=== PATIENT | female | born 1930 | race Caucasian/White ===

== ENCOUNTER 2017-02-24 05:24 | Inpatient (IN) | payer MEDICARE ==
[~2017-02-24] VITALS: Ht 165.1 cm; Wt 67.0 kg
[~2017-02-24 05:24] MED LIST: Amoxicillin500 MG PO; Flonase 0.05% N16 GM
[2017-02-24] MEDS ORDERED: LEVSOD150 PO (05:51)
[2017-02-24] MEDS ORDERED: AMLO5 PO (05:51)
[2017-02-24] MEDS ORDERED: LOSARTAN POTAS100 MG PO (05:51)
[2017-02-24] MEDS ORDERED: RANI150 PO (05:51)
[2017-02-24 06:00] LABS: BASOPHILS ABSOLUTE AUTO 0.03 K/mm3 (0.00-0.23); BASOPHILS PERCENT AUTO 0 % (0-2); EOSINOPHILS ABSOLUTE AUTO 0.14 K/mm3 (0.00-0.68); EOSINOPHILS PERCENT AUTO 2 % (0-6); Hematocrit 40.2 % (33.0-51.0); Hemoglobin 13.5 g/dL (11.5-16.0); IMMATURE GRAN ABSOLUTE AUTO 0.01 K/mm3 (0.00-0.10); IMMATURE GRAN PERCENT AUTO 0 % (0-1); LYMPHOCYTES ABSOLUTE AUTO 1.46 K/mm3 (0.84-5.20); LYMPHOCYTES PERCENT AUTO 22 % (21-46); MONOCYTES ABSOLUTE AUTO 0.46 K/mm3 (0.16-1.47); MONOCYTES PERCENT AUTO 7 % (4-13); Mean Corpuscular HGB 31.5 pg (26.0-34.0); Mean Corpuscular HGB Conc 33.6 g/dL (31.5-36.5); Mean Corpuscular Volume 94 fL (80-100); Mean Platelet Volume 10.2 fL (9.1-12.4); NEUTROPHILS PERCENT AUTO 69 % (41-73); Platelet Count 261 K/mm3 (150-400); RDW Coefficient Variation 13.8 % (11.7-14.2); Red Blood Cell Count 4.29 M/mm3 (3.80-5.20)
[2017-02-24 06:20] LABS: Alanine Aminotransfer (ALT/SGP 43 U/L (12-78); Albumin, Blood 3.6 g/dL (3.4-5.0); Alk Phos 167 U/L (50-136); Anion Gap 8 mmol/L (6-16); Aspartate Aminotrans (AST/SGOT 30 U/L (12-37); Bilirubin, Total 0.6 mg/dL (0.1-1.0); Blood Urea Nitrogen 22 mg/dL (8-24); Bun/Creatinine Ratio 17.6 (12.0-20.0); CO2, Blood 25 mmol/L (21-32); Chloride, Blood 105 mmol/L (98-108); Creatinine, Blood 1.25 mg/dL (0.40-1.00); Globulin, Blood 3.5 g/dL (2.2-4.0); Glomerular Filtration Rate 43 (60-); Glucose, Blood 135 mg/dL (70-99); Potassium, Blood 4.3 mmol/L (3.5-5.5); Sodium, Blood 138 mmol/L (136-145); Total Protein, Blood 7.1 g/dL (6.4-8.2); Troponin I <0.015 ng/mL (0.000-0.040)
[2017-02-25] MEDS ORDERED: FURO20 PO (04:52)
[2017-02-25] MEDS ORDERED: ATEN100 PO (04:53)
[2017-02-25] MEDS ORDERED: ATOR20 PO (04:55)
[2017-02-25] MEDS ORDERED: ASPI81CH PO (04:56)
[2017-02-25] MEDS ORDERED: TOCO1000 PO (04:57)
[2017-02-25] MEDS ORDERED: OMEG1CAP30 PO (04:58)
[2017-02-25] MEDS ORDERED: DOCU100 PO (04:59)
[2017-02-25] MEDS ORDERED: METF500 PO (04:59)
[2017-02-25] MEDS ORDERED: CALCA400CH PO (05:01)
[2017-02-25] MEDS ORDERED: UBID100 PO (05:03)
[2017-02-25] MEDS ORDERED: Cranberry300 MG PO (05:04)
[2017-02-25] MEDS ORDERED: EVENING PRIMR1000 MG PO ×2 (05:04→05:05)
[2017-02-25] MEDS ORDERED: Cinnamon500 MG (05:06)
[2017-02-26] MEDS ORDERED: CARV25 PO (11:07)
[2018-01-25] MEDS ORDERED: ACET325 PO (13:35)
[2018-01-25] MEDS ORDERED: Hydralazine HCl10 MG PO (13:36)
== END 2017-02-26 13:25 | disposition home or self-care (01) | DRG 291 ==
LOC: ER 05:24 → PCU 09:26 → MEDS 12:11 → ENPENDDIS 02-26 10:37 → MEDS 02-26 13:25
PROVIDERS: Emergency Medicine
DX: I13.0 Hypertensive heart and chronic kidney disease with heart failure and stage 1 through stage 4 chronic kidney disease, or unspecified chronic kidney disease (principal); I50.31 Acute diastolic (congestive) heart failure; I24.8 Other forms of acute ischemic heart disease; I35.0 Nonrheumatic aortic (valve) stenosis; N18.9 Chronic kidney disease, unspecified; E03.9 Hypothyroidism, unspecified; Z79.899 Other long term (current) drug therapy
CPT/HCPCS: 36415; 71046; 80053; 83880; 84484; 85025; 93005; 93010; 93306; 94640; 96374; 99285; J0360; J1650; J1940; J1956

== ENCOUNTER 2017-03-08 12:08 | Inpatient (IN) | payer MEDICARE ==
[~2017-03-08] VITALS: Ht 167.6 cm; Wt 66.7 kg
[~2017-03-08 12:08] MED LIST changes: +AMLO5 PO; +ASPI81CH PO; +ATEN100 PO; +ATOR20 PO; +CALCA400CH PO; +CARV25 PO; +Cinnamon500 MG; +Cranberry300 MG PO; +DOCU100 PO; +EVENING PRIMR1000 MG PO; +FURO20 PO; +LEVSOD150 PO; +LOSARTAN POTAS100 MG PO; +METF500 PO; +OMEG1CAP30 PO; +RANI150 PO; +TOCO1000 PO; +UBID100 PO
[2017-03-08 12:26] LABS: PCO2 Arterial 45.2 mmHg (35-45); PO2 Arterial 131 mmHg (80-100)
[2017-03-08 12:27] LABS: pH Blood Arterial 7.28 (7.35-7.45)
[2017-03-08 12:39] LABS: BASOPHILS ABSOLUTE AUTO 0.11 K/mm3 (0.00-0.23); BASOPHILS PERCENT AUTO 1 % (0-2); EOSINOPHILS PERCENT AUTO 0 % (0-6); Hematocrit 43.2 % (33.0-51.0); IMMATURE GRAN ABSOLUTE AUTO 0.05 K/mm3 (0.00-0.10); IMMATURE GRAN PERCENT AUTO 0 % (0-1); LYMPHOCYTES ABSOLUTE AUTO 3.09 K/mm3 (0.84-5.20); LYMPHOCYTES PERCENT AUTO 23 % (21-46); MONOCYTES ABSOLUTE AUTO 0.96 K/mm3 (0.16-1.47); MONOCYTES PERCENT AUTO 7 % (4-13); Mean Corpuscular HGB 30.7 pg (26.0-34.0); Mean Corpuscular HGB Conc 32.4 g/dL (31.5-36.5); Mean Corpuscular Volume 95 fL (80-100); Mean Platelet Volume 10.3 fL (9.1-12.4); NEUTROPHILS PERCENT AUTO 68 % (41-73); Platelet Count 343 K/mm3 (150-400); RDW Coefficient Variation 13.4 % (11.7-14.2); RDW Standard Deviation 47.2 fL (35.1-46.3); Red Blood Cell Count 4.56 M/mm3 (3.80-5.20); White Blood Cell Count 13.31 K/mm3 (4.00-11.30)
[2017-03-08 12:51] LABS: International Normalized Ratio 1.09; Prothrombin Time Results 11.4 Sec (9.7-11.5)
[2017-03-08 12:53] LABS: Source, Urine Clean Catch
[2017-03-08 13:05] LABS: Albumin, Blood 3.3 g/dL (3.4-5.0); Albumin/Globulin Ratio 0.8 (0.8-1.8); Bilirubin, Total 0.5 mg/dL (0.1-1.0); Bun/Creatinine Ratio 14.2 (12.0-20.0); Calcium, Blood 8.5 mg/dL (8.5-10.1); Creatinine, Blood 1.55 mg/dL (0.40-1.00); Globulin, Blood 4.2 g/dL (2.2-4.0); Potassium, Blood 4.6 mmol/L (3.5-5.5); Total Protein, Blood 7.5 g/dL (6.4-8.2); Troponin I 0.352 ng/mL (0.000-0.040)
[2017-03-08 13:08] LABS: Appearance, Urine Clear (Clear); Bilirubin, Urine Neg (Neg); Blood, Urine 1+ (Neg); Color, Urine Yellow (P-Yellow); Glucose Qualitative, Urine Neg (Neg); Ketones, Urine Neg (Neg); Leukocyte Esterase, Urine 1+ (Neg); Nitrite, Urine Neg (Neg); Protein, Urine 2+ (Neg); Specific Gravity, Urine 1.015 (1.003-1.022); Urobilinogen, Urine NORM (Normal)
[2017-03-08 14:10] LABS: Bacteria Few /hpf; Red Blood Cells, Urine 0-2 /hpf (0-2); Squamous Epithelial Cells Rare /hpf (Few); White Blood Cells, Urine 0-2 /hpf (0-5)
[2017-03-08 17:16] LABS: Calcium, Blood 8.2 mg/dL (8.5-10.1); Creatinine, Blood 1.69 mg/dL (0.40-1.00); Potassium, Blood 4.4 mmol/L (3.5-5.5)
[2017-03-08 17:18] LABS: Troponin I 1.84 ng/mL (0.000-0.040)
[2017-03-08 23:36] LABS: Creatine Kinase MB 3.8 ng/mL (0.0-3.6); Creatine Kinase MB Index 3.7 (0.0-4.0)
[2017-03-08 23:50] LABS: Troponin I 1.39 ng/mL (0.000-0.040)
[2017-03-09 04:10] LABS: BASOPHILS ABSOLUTE AUTO 0.03 K/mm3 (0.00-0.23); BASOPHILS PERCENT AUTO 0 % (0-2); EOSINOPHILS PERCENT AUTO 0 % (0-6); Hematocrit 32.6 % (33.0-51.0); IMMATURE GRAN ABSOLUTE AUTO 0.04 K/mm3 (0.00-0.10); IMMATURE GRAN PERCENT AUTO 1 % (0-1); LYMPHOCYTES ABSOLUTE AUTO 1.13 K/mm3 (0.84-5.20); LYMPHOCYTES PERCENT AUTO 13 % (21-46); MONOCYTES ABSOLUTE AUTO 0.73 K/mm3 (0.16-1.47); MONOCYTES PERCENT AUTO 8 % (4-13); Mean Corpuscular HGB 30.8 pg (26.0-34.0); Mean Corpuscular HGB Conc 33.7 g/dL (31.5-36.5); Mean Platelet Volume 10.4 fL (9.1-12.4); NEUTROPHILS ABSOLUTE AUTO 6.83 K/mm3 (1.96-9.15); NEUTROPHILS PERCENT AUTO 78 % (41-73); Platelet Count 249 K/mm3 (150-400); RDW Coefficient Variation 13.2 % (11.7-14.2); RDW Standard Deviation 43.8 fL (35.1-46.3); Red Blood Cell Count 3.57 M/mm3 (3.80-5.20); White Blood Cell Count 8.76 K/mm3 (4.00-11.30)
[2017-03-09 04:17] LABS: Mean Corpuscular Volume 91 fL (80-100)
[2017-03-09 04:35] LABS: Albumin, Blood 2.5 g/dL (3.4-5.0); Albumin/Globulin Ratio 0.8 (0.8-1.8); Bilirubin, Total 0.3 mg/dL (0.1-1.0); Bun/Creatinine Ratio 17.9 (12.0-20.0); Calcium, Blood 7.6 mg/dL (8.5-10.1); Creatine Kinase MB 3.4 ng/mL (0.0-3.6); Creatine Kinase MB Index 3.5 (0.0-4.0); Creatinine, Blood 1.56 mg/dL (0.40-1.00); Globulin, Blood 3.2 g/dL (2.2-4.0); Magnesium, Blood 2.1 mg/dL (1.6-2.4); Phosphorus, Blood 4.5 mg/dL (2.5-4.9); Total Protein, Blood 5.7 g/dL (6.4-8.2)
[2017-03-09 04:39] LABS: Troponin I 1.05 ng/mL (0.000-0.040)
[2017-03-12 04:56] LABS: BASOPHILS ABSOLUTE AUTO 0.04 K/mm3 (0.00-0.23); BASOPHILS PERCENT AUTO 1 % (0-2); EOSINOPHILS ABSOLUTE AUTO 0.12 K/mm3 (0.00-0.68); EOSINOPHILS PERCENT AUTO 2 % (0-6); Hematocrit 32.8 % (33.0-51.0); IMMATURE GRAN ABSOLUTE AUTO 0.01 K/mm3 (0.00-0.10); IMMATURE GRAN PERCENT AUTO 0 % (0-1); LYMPHOCYTES PERCENT AUTO 29 % (21-46); MONOCYTES ABSOLUTE AUTO 0.67 K/mm3 (0.16-1.47); MONOCYTES PERCENT AUTO 12 % (4-13); Mean Corpuscular HGB 30.6 pg (26.0-34.0); Mean Corpuscular HGB Conc 33.5 g/dL (31.5-36.5); Mean Corpuscular Volume 91 fL (80-100); Mean Platelet Volume 10.6 fL (9.1-12.4); NEUTROPHILS ABSOLUTE AUTO 3.08 K/mm3 (1.96-9.15); NEUTROPHILS PERCENT AUTO 56 % (41-73); Platelet Count 289 K/mm3 (150-400); RDW Coefficient Variation 12.9 % (11.7-14.2); RDW Standard Deviation 42.9 fL (35.1-46.3); White Blood Cell Count 5.52 K/mm3 (4.00-11.30)
[2017-03-12 05:30] LABS: Albumin, Blood 2.7 g/dL (3.4-5.0); Albumin/Globulin Ratio 0.8 (0.8-1.8); Bilirubin, Total 0.3 mg/dL (0.1-1.0); Bun/Creatinine Ratio 21.6 (12.0-20.0); Calcium, Blood 8.6 mg/dL (8.5-10.1); Creatinine, Blood 1.39 mg/dL (0.40-1.00); Globulin, Blood 3.5 g/dL (2.2-4.0); Potassium, Blood 4.2 mmol/L (3.5-5.5); Total Protein, Blood 6.2 g/dL (6.4-8.2)
[2017-03-13] MEDS ORDERED: ATOR40TA PO (14:05)
[2017-03-13] MEDS ORDERED: CARV25 PO (14:07)
[2017-03-13] MEDS ORDERED: LOSA50 PO (14:08)
[2017-03-13] MEDS ORDERED: CLOP75 PO (14:09)
[2017-03-13] MEDS ORDERED: ISOMON20 PO (14:10)
[2017-03-13] MEDS ORDERED: POTA10T PO (14:12)
[2018-01-25] MEDS ORDERED: ACET325 PO (13:35)
[2018-01-25] MEDS ORDERED: Hydralazine HCl10 MG PO (13:36)
== END 2017-03-13 15:45 | disposition home or self-care (01) | DRG 280 ==
LOC: ER 12:08 → ICUW 13:22 → ER 13:22 → ICUW 14:06 → SURS 03-11 19:26 → ICUW 03-11 19:26 → SURS 03-11 19:26
PROVIDERS: Emergency Medicine; Family Medicine; Hospitalist; Internal Medicine
PROC: 5A09357 Assistance with Respiratory Ventilation, Less than 24 Consecutive Hours, Continuous Positive Airway Pressure (ICD-10-PCS; principal; 2017-03-08)
DX: I13.0 Hypertensive heart and chronic kidney disease with heart failure and stage 1 through stage 4 chronic kidney disease, or unspecified chronic kidney disease (principal); I50.33 Acute on chronic diastolic (congestive) heart failure; I21.A1 Myocardial infarction type 2; J96.01 Acute respiratory failure with hypoxia; J18.9 Pneumonia, unspecified organism; E11.22 Type 2 diabetes mellitus with diabetic chronic kidney disease; N18.3 Chronic kidney disease, stage 3 (moderate); I35.0 Nonrheumatic aortic (valve) stenosis; E87.1 Hypo-osmolality and hyponatremia; E03.9 Hypothyroidism, unspecified; E78.5 Hyperlipidemia, unspecified; Z79.84 Long term (current) use of oral hypoglycemic drugs; Z79.899 Other long term (current) drug therapy; Z79.82 Long term (current) use of aspirin
CPT/HCPCS: 36415; 36600; 51702; 71045; 80048; 80053; 81001; 82550; 82553; 82803; 83605; 83735; 83880; 84100; 84484; 85025; 85610; 85730; 87086; 93005; 93010; 94640; 94660; 94760; 96365; 96366; 96375; 97161; 97165; 97530; 99285; G8978; G8979; G8980; G8987; G8988; G8989; J0456; J0696; J1644; J1650; J1940; J7030; J7050; J7060

== ENCOUNTER 2018-02-08 02:23 | Inpatient (IN) | payer MEDICARE ==
[~2018-02-08] VITALS: Ht 167.6 cm; Wt 58.5 kg
[~2018-02-08 02:23] MED LIST changes: +ACET325 PO; +ATOR40TA PO; +CLOP75 PO; +HYDRA25 PO; +ISODIN20 PO; +LOSA50 PO; +POTA10T PO; -RANI150 PO; +Zantac150 MG PO
[2018-02-08 02:41] LABS: BASOPHILS ABSOLUTE AUTO 0.11 K/mm3 (0.00-0.23); BASOPHILS PERCENT AUTO 1 % (0-2); EOSINOPHILS ABSOLUTE AUTO 0.22 K/mm3 (0.00-0.68); EOSINOPHILS PERCENT AUTO 2 % (0-6); Hematocrit 40.7 % (33.0-51.0); IMMATURE GRAN ABSOLUTE AUTO 0.03 K/mm3 (0.00-0.10); IMMATURE GRAN PERCENT AUTO 0 % (0-1); LYMPHOCYTES ABSOLUTE AUTO 4.28 K/mm3 (0.84-5.20); LYMPHOCYTES PERCENT AUTO 38 % (21-46); MONOCYTES ABSOLUTE AUTO 1.06 K/mm3 (0.16-1.47); MONOCYTES PERCENT AUTO 10 % (4-13); Mean Corpuscular HGB 32.4 pg (26.0-34.0); Mean Corpuscular HGB Conc 31.9 g/dL (31.5-36.5); Mean Corpuscular Volume 102 fL (80-100); Mean Platelet Volume 9.5 fL (9.1-12.4); NEUTROPHILS ABSOLUTE AUTO 5.48 K/mm3 (1.96-9.15); NEUTROPHILS PERCENT AUTO 49 % (41-73); Platelet Count 333 K/mm3 (150-400); RDW Coefficient Variation 14.4 % (11.7-14.2); RDW Standard Deviation 53.9 fL (35.1-46.3); Red Blood Cell Count 4.01 M/mm3 (3.80-5.20); White Blood Cell Count 11.18 K/mm3 (4.00-11.30)
[2018-02-08 02:50] LABS: PCO2 Arterial 49.3 mmHg (35-45); PO2 Arterial 248 mmHg (80-100); pH Blood Arterial 7.27 (7.35-7.45)
[2018-02-08 02:56] LABS: Albumin, Blood 3.5 g/dL (3.4-5.0); Albumin/Globulin Ratio 0.9 (0.8-1.8); Bilirubin, Total 0.6 mg/dL (0.1-1.0); Bun/Creatinine Ratio 9.8 (12.0-20.0); Calcium, Blood 8.5 mg/dL (8.5-10.1); Creatinine, Blood 1.33 mg/dL (0.40-1.00); Globulin, Blood 3.7 g/dL (2.2-4.0); Potassium, Blood 4.7 mmol/L (3.5-5.5); Total Protein, Blood 7.2 g/dL (6.4-8.2); Troponin I 0.015 ng/mL (0.000-0.040)
[2018-02-08 03:21] LABS: Source, Urine Catheter
[2018-02-08 03:24] LABS: Appearance, Urine Clear (Clear); Bilirubin, Urine Neg (Neg); Blood, Urine Neg (Neg); Color, Urine Yellow (P-Yellow); Glucose Qualitative, Urine Neg (Neg); Ketones, Urine Neg (Neg); Leukocyte Esterase, Urine 1+ (Neg); Nitrite, Urine Neg (Neg); Protein, Urine 2+ (Neg); Urobilinogen, Urine NORM (Normal)
[2018-02-08 03:37] LABS: Red Blood Cells, Urine 0-2 /hpf (0-2)
[2018-02-08 03:38] LABS: Bacteria Few /hpf; Squamous Epithelial Cells Few /hpf (Few)
[2018-02-08 04:37] LABS: Influenza A Negative (NEGATIVE); Influenza B Negative (NEGATIVE)
[2018-02-08 07:25] LABS: PCO2 Arterial 38.2 mmHg (35-45); PO2 Arterial 78.5 mmHg (80-100); pH Blood Arterial 7.42 (7.35-7.45)
[2018-02-09 03:32] LABS: BASOPHILS ABSOLUTE AUTO 0.01 K/mm3 (0.00-0.23); BASOPHILS PERCENT AUTO 0 % (0-2); EOSINOPHILS PERCENT AUTO 0 % (0-6); Hematocrit 33.3 % (33.0-51.0); Hemoglobin 10.9 g/dL (11.5-16.0); IMMATURE GRAN ABSOLUTE AUTO 0.04 K/mm3 (0.00-0.10); IMMATURE GRAN PERCENT AUTO 0 % (0-1); LYMPHOCYTES ABSOLUTE AUTO 0.61 K/mm3 (0.84-5.20); LYMPHOCYTES PERCENT AUTO 5 % (21-46); MONOCYTES ABSOLUTE AUTO 0.65 K/mm3 (0.16-1.47); MONOCYTES PERCENT AUTO 6 % (4-13); Mean Corpuscular HGB 31.5 pg (26.0-34.0); Mean Corpuscular HGB Conc 32.7 g/dL (31.5-36.5); Mean Corpuscular Volume 96 fL (80-100); Mean Platelet Volume 10.2 fL (9.1-12.4); NEUTROPHILS ABSOLUTE AUTO 10.06 K/mm3 (1.96-9.15); NEUTROPHILS PERCENT AUTO 88 % (41-73); Platelet Count 238 K/mm3 (150-400); RDW Coefficient Variation 14.3 % (11.7-14.2); RDW Standard Deviation 50.1 fL (35.1-46.3); Red Blood Cell Count 3.46 M/mm3 (3.80-5.20); White Blood Cell Count 11.37 K/mm3 (4.00-11.30)
[2018-02-09 03:52] LABS: Bun/Creatinine Ratio 14.2 (12.0-20.0); Calcium, Blood 8.4 mg/dL (8.5-10.1); Creatinine, Blood 1.62 mg/dL (0.40-1.00); Potassium, Blood 4.1 mmol/L (3.5-5.5)
[2018-02-10] MEDS ORDERED: Micro-K10 MEQ PO (04:44)
[2018-02-10] MEDS ORDERED: BUME2 PO (04:47)
[2018-02-10 05:23] LABS: Vancomycin, Trough 4.7 ug/mL (5.0-10.0)
[2018-02-10 12:50] LABS: Albumin, Blood 2.7 g/dL (3.4-5.0); Anion Gap 8 mmol/L (6-16); Blood Urea Nitrogen 36 mg/dL (8-24); Bun/Creatinine Ratio 21.4 (12.0-20.0); CO2, Blood 26 mmol/L (21-32); Calcium, Blood 8.2 mg/dL (8.5-10.1); Chloride, Blood 106 mmol/L (98-108); Creatinine, Blood 1.68 mg/dL (0.40-1.00); Glomerular Filtration Rate 31 (60-); Glucose, Blood 231 mg/dL (70-99); Phosphorus, Blood 3.1 mg/dL (2.5-4.9); Sodium, Blood 140 mmol/L (136-145)
[2018-02-11 03:39] LABS: Albumin, Blood 2.6 g/dL (3.4-5.0); Anion Gap 10 mmol/L (6-16); Blood Urea Nitrogen 41 mg/dL (8-24); Bun/Creatinine Ratio 24.7 (12.0-20.0); CO2, Blood 25 mmol/L (21-32); Calcium, Blood 8.1 mg/dL (8.5-10.1); Chloride, Blood 106 mmol/L (98-108); Creatinine, Blood 1.66 mg/dL (0.40-1.00); Glomerular Filtration Rate 31 (60-); Glucose, Blood 123 mg/dL (70-99); Potassium, Blood 3.8 mmol/L (3.5-5.5); Sodium, Blood 141 mmol/L (136-145)
[2018-02-11] MEDS ORDERED: LISI5 PO (13:01)
== END 2018-02-11 14:23 | disposition home or self-care (01) | DRG 291 ==
LOC: ER 02:23 → ICUE 04:10 → ICUW 04:10 → PCU 04:40 → ICUE 04:44 → PCU 02-10 17:18
PROVIDERS: Emergency Medicine; Family Medicine; Internal Medicine Endocrinology, Diabetes & Metabolism; Student in an Organized Health Care Education/Training Program
DX: I13.0 Hypertensive heart and chronic kidney disease with heart failure and stage 1 through stage 4 chronic kidney disease, or unspecified chronic kidney disease (principal); J96.01 Acute respiratory failure with hypoxia; I50.33 Acute on chronic diastolic (congestive) heart failure; J96.02 Acute respiratory failure with hypercapnia; J44.1 Chronic obstructive pulmonary disease with (acute) exacerbation; I16.1 Hypertensive emergency; N18.4 Chronic kidney disease, stage 4 (severe); I35.0 Nonrheumatic aortic (valve) stenosis; E03.9 Hypothyroidism, unspecified; E11.22 Type 2 diabetes mellitus with diabetic chronic kidney disease
CPT/HCPCS: 31500; 31720; 36415; 36600; 51702; 71045; 80048; 80053; 80069; 80202; 81001; 82803; 82947; 83605; 83880; 84145; 84484; 85025; 87070; 87086; 87205; 87804; 90686; 93005; 93010; 94002; 94003; 94640; 94644; 96365; 96375; 99291-25; 99292; C9113; G0008; J0330; J0456; J0696; J1650; J1815; J1940; J1956; J2060; J2405; J2543; J2930; J3010; J3370; J7030; J7050

== ENCOUNTER → 2018-02-19 | Outpatient (CLI) | payer MEDICARE, SELFPAY ==
[~2018-02-19] MED LIST changes: +BUME2 PO; +LISI5 PO; +Micro-K10 MEQ PO
== END | disposition home or self-care (01) ==
LOC: LAB EV 07:05
PROVIDERS: Internal Medicine
DX: J81.0 Acute pulmonary edema (principal); I10 Essential (primary) hypertension
CPT/HCPCS: 81050; 82570; 84585

== ENCOUNTER → 2018-02-24 | Outpatient (CLI) | payer MEDICARE, SELFPAY ==
[2018-02-27 18:07] LABS: DOPAMINE, URINE 18 ug/L (Undefined)
== END ==
LOC: LAB 07:05 → LAB SHORT 07:05 → EDSTATUS 02-19 15:50 → LAB FUT 02-19 15:50
PROVIDERS: Internal Medicine
DX: I10 Essential (primary) hypertension (principal); J81.0 Acute pulmonary edema
CPT/HCPCS: 81050; 82384

== ENCOUNTER → 2018-05-19 | Outpatient (CLI) | payer MEDICARE, OTHER ==
[2018-05-19 13:19] LABS: BASOPHILS ABSOLUTE AUTO 0.05 K/mm3 (0.00-0.23); BASOPHILS PERCENT AUTO 1 % (0-2); EOSINOPHILS ABSOLUTE AUTO 0.12 K/mm3 (0.00-0.68); EOSINOPHILS PERCENT AUTO 2 % (0-6); Hematocrit 30.3 % (33.0-51.0); Hemoglobin 10.3 g/dL (11.5-16.0); IMMATURE GRAN ABSOLUTE AUTO 0.01 K/mm3 (0.00-0.10); IMMATURE GRAN PERCENT AUTO 0 % (0-1); LYMPHOCYTES ABSOLUTE AUTO 1.11 K/mm3 (0.84-5.20); LYMPHOCYTES PERCENT AUTO 18 % (21-46); MONOCYTES ABSOLUTE AUTO 0.69 K/mm3 (0.16-1.47); MONOCYTES PERCENT AUTO 11 % (4-13); Mean Corpuscular HGB 31.5 pg (26.0-34.0); Mean Corpuscular Volume 93 fL (80-100); Mean Platelet Volume 9.7 fL (9.1-12.4); NEUTROPHILS ABSOLUTE AUTO 4.28 K/mm3 (1.96-9.15); NEUTROPHILS PERCENT AUTO 68 % (41-73); Platelet Count 284 K/mm3 (150-400); RDW Coefficient Variation 14.8 % (11.7-14.2); RDW Standard Deviation 49.9 fL (35.1-46.3); Red Blood Cell Count 3.27 M/mm3 (3.80-5.20); White Blood Cell Count 6.26 K/mm3 (4.00-11.30)
[2018-05-19 13:45] LABS: Albumin, Blood 3.7 g/dL (3.4-5.0); Albumin/Globulin Ratio 1.1 (0.8-1.8); Bilirubin, Total 0.4 mg/dL (0.1-1.0); Bun/Creatinine Ratio 18.4 (12.0-20.0); Creatinine, Blood 2.55 mg/dL (0.40-1.00); Globulin, Blood 3.4 g/dL (2.2-4.0); Potassium, Blood 4.4 mmol/L (3.5-5.5); Total Protein, Blood 7.1 g/dL (6.4-8.2); Troponin I 0.03 ng/mL (0.000-0.040)
== END | disposition home or self-care (01) ==
LOC: LAB EV 13:11 → LAB SHORT 13:11
PROVIDERS: Physician Assistant
DX: R06.02 Shortness of breath (principal)
CPT/HCPCS: 80053; 83880; 84484; 85025

== ENCOUNTER → 2018-05-20 | Outpatient (CLI) | payer MEDICARE, OTHER | END | disposition home or self-care (01) | LOC: LAB EV 12:55 → LAB SHORT 12:55 | DX: R06.02 Shortness of breath (principal) | CPT/HCPCS: 83880 ==

== ENCOUNTER 2018-06-25 06:10 | Inpatient (IN) | payer MEDICARE, OTHER ==
[~2018-06-25] VITALS: Ht 165.1 cm; Wt 63.5 kg
[2018-06-25 06:29] LABS: BASOPHILS ABSOLUTE AUTO 0.04 K/mm3 (0.00-0.23); BASOPHILS PERCENT AUTO 0 % (0-2); EOSINOPHILS ABSOLUTE AUTO 0.02 K/mm3 (0.00-0.68); EOSINOPHILS PERCENT AUTO 0 % (0-6); Hematocrit 37.5 % (33.0-51.0); IMMATURE GRAN ABSOLUTE AUTO 0.04 K/mm3 (0.00-0.10); IMMATURE GRAN PERCENT AUTO 0 % (0-1); LYMPHOCYTES ABSOLUTE AUTO 0.72 K/mm3 (0.84-5.20); LYMPHOCYTES PERCENT AUTO 5 % (21-46); MONOCYTES ABSOLUTE AUTO 0.84 K/mm3 (0.16-1.47); MONOCYTES PERCENT AUTO 6 % (4-13); Mean Corpuscular HGB 31.1 pg (26.0-34.0); Mean Corpuscular Volume 97 fL (80-100); Mean Platelet Volume 9.7 fL (9.1-12.4); NEUTROPHILS ABSOLUTE AUTO 13.19 K/mm3 (1.96-9.15); NEUTROPHILS PERCENT AUTO 89 % (41-73); Platelet Count 298 K/mm3 (150-400); RDW Coefficient Variation 14.6 % (11.7-14.2); RDW Standard Deviation 50.5 fL (35.1-46.3); Red Blood Cell Count 3.86 M/mm3 (3.80-5.20); White Blood Cell Count 14.85 K/mm3 (4.00-11.30)
[2018-06-25 06:49] LABS: Albumin, Blood 3.6 g/dL (3.4-5.0); Bilirubin, Total 0.7 mg/dL (0.1-1.0); Bun/Creatinine Ratio 19.5 (12.0-20.0); Creatinine, Blood 2.21 mg/dL (0.40-1.00); Globulin, Blood 3.6 g/dL (2.2-4.0); Potassium, Blood 5.8 mmol/L (3.5-5.5); Total Protein, Blood 7.2 g/dL (6.4-8.2); Troponin I 0.033 ng/mL (0.000-0.040)
--- NOTE | 2018-06-25 18:17 | NUR ---
SHIFT SUMMARY PT ALERT AND ORIENTED. VS STABLE AT THIS TIME. 02 SATS HAVE REMAINED ABOVE 90%. PT TITRATED FROM BIPAP TO NC AT 2L. PT DENIES CP. PT DENIES ANY PAIN. PT ABLE TO TRANSFER TO BSC WITH SBA AND SATS REMAINED ABOVE 90%. WILL CONTINUE TO MONITOR AND REPORT TO ONCOMING RN. CALL LIGHT IN REACH.
--- NOTE | 2018-06-25 23:20 | NUR ---
PM NOTE. ASSUMED CARE OF PT APROX 1900, PT IS A&0x4, PLEASENT AND COOPERATIVE WITH CARE, PT WAS AMDITTED FOR FLASH PULMONARY EDEMA, THIS HAS IMPROVED GREATLY. PT WAS ON 2L NC AT 98% WHEN THIS RN ENTERD THE ROOM, O2 WAS TURNED OFF AND PT'S SATS REMAINED STABLE AT >92%. PT'S RESP EFFORT WAS RELAXED, RR AT 16. TELE INTACT, NSR IN THE 60'S-70'S PER CAM MILLING MACHINE OPERATOR, PT'S BP 146/77, NO EDEMA NOTED ON ASSESSMENT. PT'S L/S CLEAR UPPER LOBES FINE CRACKELS NOTED IN THE BASES. RR IS 16 EVEN AND UNLABORED, PT BECOMES SLIGHTLY SOB W/ACTIVITY BUT THIS HAS GREATLY IMPROVED PER PT. BT PRESENT AND HYPOACTIVE, ABD IS SOFT AND NONTENDER TO PALP. CALL LIGHT IN REACH,BED IS LOCKED AND LOW WILL CONTINUE TO MONITOR. WILL CONTINUE TO MONITOR.
[2018-06-26 06:19] LABS: BASOPHILS ABSOLUTE AUTO 0.04 K/mm3 (0.00-0.23); BASOPHILS PERCENT AUTO 1 % (0-2); EOSINOPHILS ABSOLUTE AUTO 0.05 K/mm3 (0.00-0.68); EOSINOPHILS PERCENT AUTO 1 % (0-6); Hemoglobin 10.8 g/dL (11.5-16.0); IMMATURE GRAN ABSOLUTE AUTO 0.02 K/mm3 (0.00-0.10); IMMATURE GRAN PERCENT AUTO 0 % (0-1); LYMPHOCYTES ABSOLUTE AUTO 0.69 K/mm3 (0.84-5.20); LYMPHOCYTES PERCENT AUTO 9 % (21-46); MONOCYTES ABSOLUTE AUTO 0.79 K/mm3 (0.16-1.47); MONOCYTES PERCENT AUTO 11 % (4-13); Mean Corpuscular HGB 31.4 pg (26.0-34.0); Mean Corpuscular HGB Conc 33.8 g/dL (31.5-36.5); Mean Platelet Volume 9.2 fL (9.1-12.4); NEUTROPHILS ABSOLUTE AUTO 5.94 K/mm3 (1.96-9.15); NEUTROPHILS PERCENT AUTO 79 % (41-73); Platelet Count 276 K/mm3 (150-400); RDW Coefficient Variation 14.6 % (11.7-14.2); RDW Standard Deviation 47.9 fL (35.1-46.3); Red Blood Cell Count 3.44 M/mm3 (3.80-5.20); White Blood Cell Count 7.53 K/mm3 (4.00-11.30)
[2018-06-26 06:24] LABS: Mean Corpuscular Volume 93 fL (80-100)
[2018-06-26 06:39] LABS: Albumin, Blood 3.1 g/dL (3.4-5.0); Bilirubin, Total 0.6 mg/dL (0.1-1.0); Bun/Creatinine Ratio 19.8 (12.0-20.0); Calcium, Blood 8.7 mg/dL (8.5-10.1); Creatine Kinase MB 1.5 ng/mL (0.0-3.6); Creatine Kinase MB Index 3.2 (0.0-4.0); Creatinine, Blood 2.47 mg/dL (0.40-1.00); Potassium, Blood 4.1 mmol/L (3.5-5.5); Total Protein, Blood 6.1 g/dL (6.4-8.2); Troponin I 0.499 ng/mL (0.000-0.040)
--- NOTE | 2018-06-26 06:46 | NUR ---
SHIFT SUMMARY. NO ACUTE CHANGES NOTED. PT HAS BEEN ON RA ALL SHIFT W/O2 SATS >90% PT WAS TREATED FOR HTN ONCE DURING THIS SHIFT WITH GOOD RESULTS. PT DENIES ANY CHEST PAIN/PRESSURE, N/V OR SOB. PT HAS BEEN IND TO THE BSC. NO CARDIAC EVENTS NOTED ON TELE. PT HAS BEEN ABLE TO TURN HERSELF IN BED INDEPENDENTLY. CALL LIGHT IN REACH, BED IS LOCKED AND LOW WILL CONTINUE TO MONITOT UNTIL REPORT IS GIVEN TO ONCOMING RN.
--- NOTE | 2018-06-26 09:00 | NUR ---
ASSUMED CARE OF PT AT APPROXIMATELY 0745. PT ALERT AND ORIENTED. 02 SATS >90% ON RA. PT REPORTS FEELING SHORT OF BREATH. CRACKLES HEARD IN BILATERAL BASES OF LUNGS. BP ELEVATED. PT MEDICATED AND PLACED ON BIPAP. BP RECHECKED AN HOUR AFTER MEDICATION ADMINISTRATION AND HAS IMPROVED. WILL CONTINUE TO MONITOR.
--- NOTE | 2018-06-26 19:17 | NUR ---
SHIFT SUMMARY PT ALERT AND ORIENTED. VS STABLE. PT HAS BEEN ON RA SINCE 1200 WITH SATS >90%. PT DENIES FEELING SOB THIS EVENING. DR. COSTA IN THIS AFTERNOON WITH NEW ORDERS. BLADDER SCAN DONE AND 315ML IN BLADDER. DR. COSTA NOTIFIED WITH NEW ORDERS TO REPEAT BLADDER SCAN AT 2100. PT NOTIFIED OF PLAN OF CARE. PT DENIES PAIN. REPORT GIVEN TO RESIN MAKER RN.
[2018-06-27 04:15] LABS: BASOPHILS ABSOLUTE AUTO 0.02 K/mm3 (0.00-0.23); BASOPHILS PERCENT AUTO 0 % (0-2); EOSINOPHILS PERCENT AUTO 2 % (0-6); Hematocrit 31.2 % (33.0-51.0); Hemoglobin 10.3 g/dL (11.5-16.0); IMMATURE GRAN ABSOLUTE AUTO 0.02 K/mm3 (0.00-0.10); IMMATURE GRAN PERCENT AUTO 0 % (0-1); LYMPHOCYTES ABSOLUTE AUTO 0.96 K/mm3 (0.84-5.20); LYMPHOCYTES PERCENT AUTO 15 % (21-46); MONOCYTES ABSOLUTE AUTO 0.84 K/mm3 (0.16-1.47); MONOCYTES PERCENT AUTO 13 % (4-13); Mean Corpuscular HGB 30.8 pg (26.0-34.0); Mean Corpuscular Volume 93 fL (80-100); Mean Platelet Volume 9.4 fL (9.1-12.4); NEUTROPHILS ABSOLUTE AUTO 4.48 K/mm3 (1.96-9.15); NEUTROPHILS PERCENT AUTO 70 % (41-73); Platelet Count 278 K/mm3 (150-400); RDW Coefficient Variation 14.8 % (11.7-14.2); RDW Standard Deviation 48.9 fL (35.1-46.3); Red Blood Cell Count 3.34 M/mm3 (3.80-5.20); White Blood Cell Count 6.42 K/mm3 (4.00-11.30)
[2018-06-27 04:35] LABS: Anion Gap 8 mmol/L (6-16); Blood Urea Nitrogen 56 mg/dL (8-24); Bun/Creatinine Ratio 21.7 (12.0-20.0); CO2, Blood 25 mmol/L (21-32); Calcium, Blood 8.6 mg/dL (8.5-10.1); Chloride, Blood 104 mmol/L (98-108); Creatinine, Blood 2.58 mg/dL (0.40-1.00); Glomerular Filtration Rate 19 (60-); Glucose, Blood 108 mg/dL (70-99); Magnesium, Blood 2.1 mg/dL (1.6-2.4); Phosphorus, Blood 3.4 mg/dL (2.5-4.9); Potassium, Blood 4.1 mmol/L (3.5-5.5); Sodium, Blood 137 mmol/L (136-145); Troponin I 0.237 ng/mL (0.000-0.040)
--- NOTE | 2018-06-27 05:25 | NUR ---
SHIFT SUMMARY PT A&O X4, CALM AND COOPERATIVE. LUNG SOUNDS CLEAR T/O. SPO2 > 92% ON RA. MONITOR SHOWS NSR. SYS BP > 160 TX'D W/ HYDRALAZINE PER EMAR X1 THIS SHIFT, OTHERWISE VSS. PM BLADDER SCAN SHOWING APPROX 360 MLS URINE. PT REQUIRING PROMPTING TO GET UP TO BEDSIDE COMMODE TO VOID. WILL CONTINUE TO MONITOR AND PROVIDE CARE UNTIL REPORT OFF TO DAY SHIFT RN.
--- NOTE | 2018-06-27 10:40 | NUR ---
AM NOTE. ASSUMED CARE OF PT APROX 0700. PT IS A&O AND IND IN THE ROOM. PT WAS ADMITTED FOR FLASH PULMONARY EDEMA. PT HAS BEEN HYPERTENSIVE, AND MEDICATED PER EMAR. PT IS CURRENTLY ON 2L NC AT 96%, PT REQUESTS TO LEAVE THE O2 ON DUE TO PERSONAL COMFORT AT THIS TIME. TELE INTACT, NSR IN THE 80'S, PT'S BP 175/87. NO EDEMA NOTED ON ASSESSMENT. PT'S L/S CLEAR IN THE UPPER LOBES AND DIM IN THE BASES. BT PRESENT AND HYPERACTIVE, ABD IS SLIGHTLY DISTENDED BUT NONTENDER TO PALP. PT HAS URINARY RETENTION AT THIS TIME, PT IS ENCOURAGED Q2 HOURS TO GET UP AND USE THE BSC TO ATTEMPT TO VOID. PT HAD RENAL/BLADDER US TODAY RESULTS PENDING.
--- NOTE | 2018-06-27 15:58 | NUR ---
ASSUMED CARE FOR PT AT APPROX 1430. PT IS A/O X 4 AND INDEPENDENT TO THE BR. SHE IS CALM AND COOPERATIVE WITH CARE. PT IN ROOM WITH VISITOR AT THIS TIME WILL CONTINUE TO MONITOR.
--- NOTE | 2018-06-28 04:30 | NUR ---
SHIFT SUMMARY PT IS ALERT AND ORIENTED. PATIENT GETS UP INDEPENDENTLY IN ROOM. NO COMPLAINTS OF SOB OR CP. PATIENT SLEPT WELL THROUGHOUT THE NIGHT. VITALS STABLE. NO NEW CHANGES NOTED.
[2018-06-28 05:22] LABS: BASOPHILS ABSOLUTE AUTO 0.04 K/mm3 (0.00-0.23); BASOPHILS PERCENT AUTO 1 % (0-2); EOSINOPHILS ABSOLUTE AUTO 0.17 K/mm3 (0.00-0.68); EOSINOPHILS PERCENT AUTO 3 % (0-6); Hematocrit 33.5 % (33.0-51.0); Hemoglobin 10.9 g/dL (11.5-16.0); IMMATURE GRAN ABSOLUTE AUTO 0.02 K/mm3 (0.00-0.10); IMMATURE GRAN PERCENT AUTO 0 % (0-1); LYMPHOCYTES ABSOLUTE AUTO 0.73 K/mm3 (0.84-5.20); LYMPHOCYTES PERCENT AUTO 11 % (21-46); MONOCYTES ABSOLUTE AUTO 0.83 K/mm3 (0.16-1.47); MONOCYTES PERCENT AUTO 13 % (4-13); Mean Corpuscular HGB 30.5 pg (26.0-34.0); Mean Corpuscular HGB Conc 32.5 g/dL (31.5-36.5); Mean Corpuscular Volume 94 fL (80-100); Mean Platelet Volume 9.4 fL (9.1-12.4); NEUTROPHILS ABSOLUTE AUTO 4.68 K/mm3 (1.96-9.15); NEUTROPHILS PERCENT AUTO 72 % (41-73); Platelet Count 278 K/mm3 (150-400); RDW Coefficient Variation 14.8 % (11.7-14.2); Red Blood Cell Count 3.57 M/mm3 (3.80-5.20); White Blood Cell Count 6.47 K/mm3 (4.00-11.30)
[2018-06-28 05:52] LABS: Albumin, Blood 3.1 g/dL (3.4-5.0); Anion Gap 9 mmol/L (6-16); Blood Urea Nitrogen 57 mg/dL (8-24); Bun/Creatinine Ratio 21.3 (12.0-20.0); CO2, Blood 22 mmol/L (21-32); Calcium, Blood 8.6 mg/dL (8.5-10.1); Chloride, Blood 105 mmol/L (98-108); Creatinine, Blood 2.67 mg/dL (0.40-1.00); Glomerular Filtration Rate 18 (60-); Glucose, Blood 114 mg/dL (70-99); Magnesium, Blood 2.1 mg/dL (1.6-2.4); Phosphorus, Blood 3.6 mg/dL (2.5-4.9); Potassium, Blood 4.7 mmol/L (3.5-5.5); Sodium, Blood 136 mmol/L (136-145)
--- NOTE | 2018-06-28 16:55 | NUR ---
SHIFT SUMMARY PT A+O, INDEPENDANT IN THE ROOM, NO COMPLAINTS OF SHORTNESS OF BREATH THIS SHIFT. DIET WAS CHANGED FROM CARDIAC TO RENAL TODAY. FAMILY HAS VISITED THIS SHIFT. PT CALM AND COOPERATIVE THROUGHOUT THE DAY.
[2018-06-28 17:35] LABS: Adenovirus Not Detected (NOT DETECT); Bordetella pertussis Not Detected (NOT DETECT); Chlamydophila pneumoniae Not Detected (NOT DETECT); Coronavirus 229E Not Detected (NOT DETECT); Coronavirus HKU1 Not Detected (NOT DETECT); Coronavirus NL63 Not Detected (NOT DETECT); Coronavirus OC43 Not Detected (NOT DETECT); Human Metapneumovirus Not Detected (NOT DETECT); Human Rhinovirus/Enterovirus Not Detected (NOT DETECT); Influenza A Not Detected (NOT DETECT); Influenza A/2009-H1 Not Detected (NOT DETECT); Influenza A/H1 Not Detected (NOT DETECT); Influenza A/H3 Not Detected (NOT DETECT); Influenza B Not Detected (NOT DETECT); Mycoplasma pneumoniae Not Detected (NOT DETECT); Parainfluenza Virus 1 Not Detected (NOT DETECT); Parainfluenza Virus 2 Not Detected (NOT DETECT); Parainfluenza Virus 3 Not Detected (NOT DETECT); Parainfluenza Virus 4 Not Detected (NOT DETECT); Respiratory Syncytial Virus Not Detected (NOT DETECT)
--- NOTE | 2018-06-28 23:50 | NUR ---
AT BEGINING OF SHIFT PATIENT HAD NO COMPLAINTS OF SOB OR PAIN. WAS VISITING WITH SON BRYCE. PATIENT HAD BEEN GETTING UP TO BATHROOM ON HER OWN. ON ROOM AIR. PATIENT EXPRESSED CONCERN SHE HAD NOT YET HAD A BOWEL MOVEMENT. OFFERED THE PT STOOL SOFTENERS. ABOUT 2330 PATIENT CALLED TO REPORT FEELING SOB LIKE SHE COULDN'T CATCH HER BREATH. PTS BREATHING WAS LABORED. VITAL SIGNS OBTAINED AND RESPIRATORY THERAPY WAS NOTIFIED. LUNG SOUNDS COARSE AND MOIST. RESPIRATORY GAVE BREATHING TREATMENT WHICH DID NOT HELP. PT WAS THEN PLACED ON BIPAP AND CONTINUOUS PULSE OXIMETER. PT CONTINUED TO FEEL SOB AND SATURATIONS WERE IN THE LOW 90'S 20-30 MINS AFTER PT WAS PLACED ON BIPAP. CALLED HOSPITALIST TO NOTIFY HIM THAT PT WAS NOT GETTING BETTER. NEW ORDERS FOR CHEST XRAY, OT DOSE OF LASIX AND TRANSFER ORDER TO ICU. GAVE LASIX AND PRN HYDRALAZINE FOR ELEVATED BP. INFORMED PATIENT OF CURRENT PLAN, PT NODDED IN UNDERSTANDING. ASKED PT IF SHE WOULD LIKE HER SON BRYCE NOTIFIED OF CURRENT STATUS AND BED CHANGE, PT NODDED YES. REPORT GIVEN TO MARILYN IN ICU. PATIENT TRANSFERED TO ICU ROOM 5 SAFELY WITH NON REBREATHER AT 15LPM WITH ASSISTANCE OF YU Tripp RN.
--- NOTE | 2018-06-29 00:44 | NUR ---
REPORT RECEIVED FROM BLAIR CABRAL
[2018-06-29 01:35] LABS: Source, Urine Catheter
[2018-06-29 01:38] LABS: Bilirubin, Urine Neg (Neg); Blood, Urine Neg (Neg); Glucose Qualitative, Urine Neg (Neg); Ketones, Urine Neg (Neg); Leukocyte Esterase, Urine Neg (Neg); Nitrite, Urine Neg (Neg); Protein, Urine 1+ (Neg); Urobilinogen, Urine NORM (Normal)
[2018-06-29 01:42] LABS: Appearance, Urine Clear (Clear); Color, Urine Yellow (P-Yellow)
--- NOTE | 2018-06-29 01:42 | NUR ---
ARRIVAL TO ICU PT ARRIVED TO ICU RM 5 FROM MEDICAL FLOOR. RR ELEVATED, 02 SAT 90'S ON BIPAP. SEE ASSESSMENT FOR SETTINGS. BP ELEVATED INITIALLY BUT IMPROVED AT REPEAT VITALS ASSESSMENT, SEE FLOWSHEET. PT AFEBRILE. DENIES PAIN/DISCOMFORT. PT ORIENTED, RESPONSIVE BUT DROWSY. TREJO PLACED DUE TO RESP STATUS AND NEED FOR STRICT INTAKE AND OUTPUT. PT ORIENTED TO CALL LIGHT, AGREES TO CALL FOR NEEDS. 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 PT CURRENTLY ON ABX, THEREFORE UNABLE TO SWAB TO RULE OUT AT THIS TIME.
--- NOTE | 2018-06-29 02:13 | NUR ---
FAMILY UPDATED PT'S SON, BRYCE, NOTIFIED OF TRANSFER AND UPDATED ON PT CONDITION PER PATIENT REQUEST.
[2018-06-29 03:22] LABS: BASOPHILS ABSOLUTE AUTO 0.04 K/mm3 (0.00-0.23); BASOPHILS PERCENT AUTO 0 % (0-2); EOSINOPHILS ABSOLUTE AUTO 0.08 K/mm3 (0.00-0.68); EOSINOPHILS PERCENT AUTO 1 % (0-6); Hematocrit 33.6 % (33.0-51.0); Hemoglobin 10.8 g/dL (11.5-16.0); IMMATURE GRAN ABSOLUTE AUTO 0.03 K/mm3 (0.00-0.10); IMMATURE GRAN PERCENT AUTO 0 % (0-1); LYMPHOCYTES ABSOLUTE AUTO 0.53 K/mm3 (0.84-5.20); LYMPHOCYTES PERCENT AUTO 5 % (21-46); MONOCYTES ABSOLUTE AUTO 0.49 K/mm3 (0.16-1.47); MONOCYTES PERCENT AUTO 5 % (4-13); Mean Corpuscular HGB 30.3 pg (26.0-34.0); Mean Corpuscular HGB Conc 32.1 g/dL (31.5-36.5); Mean Corpuscular Volume 94 fL (80-100); Mean Platelet Volume 9.5 fL (9.1-12.4); NEUTROPHILS ABSOLUTE AUTO 8.99 K/mm3 (1.96-9.15); NEUTROPHILS PERCENT AUTO 89 % (41-73); Platelet Count 280 K/mm3 (150-400); RDW Coefficient Variation 14.9 % (11.7-14.2); RDW Standard Deviation 50.4 fL (35.1-46.3); Red Blood Cell Count 3.56 M/mm3 (3.80-5.20); White Blood Cell Count 10.16 K/mm3 (4.00-11.30)
[2018-06-29 03:40] LABS: Albumin, Blood 3.1 g/dL (3.4-5.0); Anion Gap 8 mmol/L (6-16); Blood Urea Nitrogen 60 mg/dL (8-24); Bun/Creatinine Ratio 19.2 (12.0-20.0); CO2, Blood 24 mmol/L (21-32); Calcium, Blood 8.5 mg/dL (8.5-10.1); Chloride, Blood 104 mmol/L (98-108); Creatinine, Blood 3.12 mg/dL (0.40-1.00); Glomerular Filtration Rate 15 (60-); Glucose, Blood 156 mg/dL (70-99); Magnesium, Blood 2.2 mg/dL (1.6-2.4); Phosphorus, Blood 4.6 mg/dL (2.5-4.9); Potassium, Blood 5.6 mmol/L (3.5-5.5); Sodium, Blood 136 mmol/L (136-145)
--- NOTE | 2018-06-29 05:30 | NUR ---
DR. GAIL REYNOLDS TO BEDSIDE FOR ASSESSMENT. NEW ORDERS RECEIVED TO CHANGE BUMEX TO IV X3 DAYS AND THEN BACK TO ORAL.
--- NOTE | 2018-06-29 06:10 | NUR ---
DR. JULISSA COSTA TO BEDSIDE FOR ASSESSMENT. NEW ORDER FOR SOLUMEDROL.
--- NOTE | 2018-06-29 06:32 | NUR ---
SUMMARY SINCE ARRIVAL TO ICU, PT HAS REMAINED ON BIPAP, WEANED DOWN ON FIO2 TO 35%. OTHERWISE, ASSESSMENTS UNCHANGED. THIS MORNING FOR AM BUILDINGS AND GROUNDS DIRECTOR PT REPORTS FEELING UNCOMFORTABLE BEING OFF BIPAP TO TAKE PILLS. LEVOTHYROXINE HELD PER PT REQUEST. VITALS REMAIN STABLE WITH SLIGHTLY ELEVATED BP. SEE FLOWSHEET. PT HAS CALLED APPROPRIATELY FOR NEEDS THROUGHOUT MORNING.
--- NOTE | 2018-06-29 07:30 | NUR ---
ASSUMED CARE OF PT FROM TEAR DOWN WORKER RN. PT A&OX4, MILD SOB, LS COARSE, SLIGHT CRACKLES BASES, ON BIPAP 16/8, 35% FIO2, SPO2 99%. SBP 150-160'S. RESTING IN BED, LOW POSITION, CALL LIGHT IN REACH. DENIES CHEST PAIN OR ANY PAIN OR WEAKNESS.
--- NOTE | 2018-06-29 12:46 | NUR ---
Echocardiogram completed.
--- NOTE | 2018-06-29 14:00 | NUR ---
POTASSIUM 5.2. NOTIFIED DR COSTA OF RESULTS PER REQUEST. NO NEW ORDERS.
--- NOTE | 2018-06-29 17:25 | NUR ---
PT A&OX4, C/O MILD SOB AT REST, NO INCREASE WITH AMBULATION. UP TO CHAIR TODAY. PT OFF BIPAP AT 0830 TO 4 L NC TO RA BY END OF SHIFT. LS IMPROVED, CLEAR UPPER LOBES, COARSE BASES. RR 16-20, SP02 96% RA. EDUCATED PT ON I/S AND CDB. SBP 150-160 THIS AM, IMPROVED TO 120-140'S AFTER AM MEDS. HR 70'S. TEMP 100.0*F THIS AM, IMPROVED TO 98.3*F. ECHO DONE WITH EF 47%. TREJO D/C'D @ 1130, TOTAL OUTPUT 400 ML THIS SHIFT, BLADDER SCANNED 229 ML @ 1700. SENIOR POLICY ASSOCIATE AND MARKETING TRAFFIC MANAGER CONSULT DONE, SEE NOTES. PLAN FOR RENAL ULTRASOUND TOMORROW MORNING, NPO AFTER MIDNIGHT.
[2018-06-30 03:45] LABS: Hematocrit 30.4 % (33.0-51.0)
[2018-06-30 04:02] LABS: Anion Gap 10 mmol/L (6-16); Blood Urea Nitrogen 68 mg/dL (8-24); Bun/Creatinine Ratio 23.9 (12.0-20.0); CO2, Blood 22 mmol/L (21-32); Calcium, Blood 8.6 mg/dL (8.5-10.1); Chloride, Blood 104 mmol/L (98-108); Creatinine, Blood 2.85 mg/dL (0.40-1.00); Glomerular Filtration Rate 17 (60-); Glucose, Blood 177 mg/dL (70-99); Magnesium, Blood 2.3 mg/dL (1.6-2.4); Phosphorus, Blood 3.8 mg/dL (2.5-4.9); Potassium, Blood 4.8 mmol/L (3.5-5.5); Sodium, Blood 136 mmol/L (136-145)
--- NOTE | 2018-06-30 06:05 | NUR ---
SUMMARY NO ACUTE CHANGES THROUGHOUT SHIFT. ASSESSMENTS UNCHANGED. VITALS STABLE. PT DENIES FEELINGS OF SOB. PT HAS SLEPT SOUNDLY THROUGHOUT NIGHT, AROUSING EASILY FOR REASSESSMENTS AND CALLING APPROPRIATELY FOR NEEDS. STAND BY ASSIST FOR ADL'S. NPO SINCE MIDNIGHT FOR RENAL ULTRASOUND TODAY. SPOKE WITH PT AND DAUGHTER IN [place], PRO LAST NIGHT. BOTH ARE EAGER TO FIND SOLUTION TO RECURRENT PULMONARY EDEMA.
--- NOTE | 2018-06-30 06:32 | NUR ---
DR. JULISSA COSTA TO BEDSIDE FOR ASSESSMENT. NO NEW ORDERS.
--- NOTE | 2018-06-30 07:28 | NUR ---
REPORT TO BLAIR CAAL TO ASSUME CARE
--- NOTE | 2018-06-30 17:40 | NUR ---
PT A&OX4, PER NIGHT NURSE, NO BIPAP NEEDED. THIS AM PT SLIGHTLY SOB, ON BIPAP X 1 HR AFTER AMBULATING TO COMMODE, SPO2 99% RA, OFF 02 REST OF DAY. BIPAP ORDERS SWITCHED TO PRN. SBP MAINTAINED 120'S-140'S WITH ROUTINE MEDS. NSR, HR 70-80'S. VOIDING, LAST BM 06/30/18. INDEPENDENT IN BED, SBA TO COMMODE. 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 TRANSFER TO PCU RM 9 WITH REPORT TO BLAIR CHRISTOPHER.
--- NOTE | 2018-06-30 18:32 | NUR ---
TRANSFER NOT: Pt arrived to room pcu 9 this saúl at about 1815. Oriented to room and unit. Denies questions. Call light in reach. Will report to night RN.
[2018-07-01 04:31] LABS: BASOPHILS ABSOLUTE AUTO 0.03 K/mm3 (0.00-0.23); BASOPHILS PERCENT AUTO 0 % (0-2); EOSINOPHILS ABSOLUTE AUTO 0.09 K/mm3 (0.00-0.68); EOSINOPHILS PERCENT AUTO 1 % (0-6); Hematocrit 32.4 % (33.0-51.0); Hemoglobin 10.6 g/dL (11.5-16.0); IMMATURE GRAN ABSOLUTE AUTO 0.02 K/mm3 (0.00-0.10); IMMATURE GRAN PERCENT AUTO 0 % (0-1); LYMPHOCYTES PERCENT AUTO 18 % (21-46); MONOCYTES ABSOLUTE AUTO 0.66 K/mm3 (0.16-1.47); MONOCYTES PERCENT AUTO 9 % (4-13); Mean Corpuscular HGB 30.8 pg (26.0-34.0); Mean Corpuscular HGB Conc 32.7 g/dL (31.5-36.5); Mean Corpuscular Volume 94 fL (80-100); Mean Platelet Volume 9.3 fL (9.1-12.4); NEUTROPHILS PERCENT AUTO 72 % (41-73); Platelet Count 290 K/mm3 (150-400); RDW Coefficient Variation 14.7 % (11.7-14.2); RDW Standard Deviation 50.4 fL (35.1-46.3); Red Blood Cell Count 3.44 M/mm3 (3.80-5.20)
[2018-07-01 04:51] LABS: Anion Gap 9 mmol/L (6-16); Blood Urea Nitrogen 71 mg/dL (8-24); Bun/Creatinine Ratio 27.3 (12.0-20.0); CO2, Blood 23 mmol/L (21-32); Calcium, Blood 8.6 mg/dL (8.5-10.1); Chloride, Blood 105 mmol/L (98-108); Glomerular Filtration Rate 18 (60-); Glucose, Blood 115 mg/dL (70-99); Magnesium, Blood 2.4 mg/dL (1.6-2.4); Potassium, Blood 4.6 mmol/L (3.5-5.5); Sodium, Blood 137 mmol/L (136-145)
--- NOTE | 2018-07-01 04:57 | NUR ---
SHIFT SUMMARY: PATIENT REMAINS ALERT AND ORIENTED WITH NO COMPLAINTS OF PAIN, VSS WITH SOME INCREASED BP CONTROLLED WITH MEDICATIONS PER MD ORDER. PATIENT SLEPT WELL, NO OTHER ISSUES NOTED THIS SHIFT. BED LOW AND LOCKED, CALL LIGHT WITHIN REACH, MONITORING CLOSELY.
--- NOTE | 2018-07-01 07:30 | NUR ---
AM ASSESSMENT: Pt resting in bed. LS diminished. HR reg. BT positive. Pulses palp. Denies pain. States that she has some SOB with activity. BP elevated. Will treat per orders. Pt up to bathroom with one assist. Tolerated well. Call light in Reach. Will continue to monitor.
--- NOTE | 2018-07-01 14:30 | NUR ---
Update: Pt sitting up in chair. Consult called for Renal arterial stenosis. Dr. Lambert in to see pt. Orders for NPO after Midnight for procedure tomorrow. Pt denies questions or needs. Call light in reach. Will monitor.
--- NOTE | 2018-07-01 18:49 | NUR ---
SHIFT SUMMARY: Pt resting in bed at this time. Has done well this shift. VSS. Biox has remained >90% on RA. Pt has denied SOB except with activity. Pt aware of plan for renal angiogram tomorrow and plan for NPO after midnight. Denies questions. Stable throughout shift. Report given to night RN.
[2018-07-02 04:10] LABS: Hematocrit 31.4 % (33.0-51.0); Hemoglobin 10.3 g/dL (11.5-16.0)
[2018-07-02 04:25] LABS: Albumin, Blood 2.9 g/dL (3.4-5.0); Anion Gap 9 mmol/L (6-16); Blood Urea Nitrogen 69 mg/dL (8-24); Bun/Creatinine Ratio 27.7 (12.0-20.0); CO2, Blood 22 mmol/L (21-32); Calcium, Blood 8.1 mg/dL (8.5-10.1); Chloride, Blood 106 mmol/L (98-108); Creatinine, Blood 2.49 mg/dL (0.40-1.00); Glomerular Filtration Rate 19 (60-); Glucose, Blood 104 mg/dL (70-99); HDL Cholesterol 63 mg/dL (>39); Magnesium, Blood 2.3 mg/dL (1.6-2.4); Phosphorus, Blood 3.7 mg/dL (2.5-4.9); Potassium, Blood 4.7 mmol/L (3.5-5.5); Sodium, Blood 137 mmol/L (136-145)
--- NOTE | 2018-07-02 04:54 | NUR ---
SHIFT SUMMARY: PATIENT VSS, NPO SINCE 0000, CONSENT IN FRONT OF CHART, BED LOW AND LOCKED AND CALL LIGHT WITHIN REACH.
--- NOTE | 2018-07-02 08:10 | NUR ---
INITIAL ASSESSMENT: PT IS AWAKE ALERT AND OX3. PT DENIES PAIN AT THIS TIME. HRR. LS CTA, BIOX WNL ON RA. BT+. PPP. NO EDEMA PRESENT AT THIS TIME. VSS. BP A LITTLE HIGH. AM MEDS GIVEN WHOLE WITH SIP OF WATER. HEART CENTER STAFF IS ON THEIR WAY TO COME AND GET PATIENT. PT AMBULATED TO BR IND.
--- NOTE | 2018-07-02 08:20 | NUR ---
MILITARY NURSE STAFF HERE TO TAKE PATIENT DOWN FOR PROCEDURE. IV SL'D
--- NOTE | 2018-07-02 10:22 | NUR ---
PATIENT RETURNED FROM SOLAR ENERGY SPECIALIST. REPORT GIVEN AT BEDSIDE. NO BLEEDING NOTED AT THE GRION SITE. VSS, NO COMPLAINTS OF PAIN OR DISCOMFORT NOTED.
--- NOTE | 2018-07-02 18:34 | NUR ---
NO ACUTE CHANGES NOTED. PATIENT DOING WELL POST STENTING PROCEDURE WITH INCREASE IN URINE OUTPUT. NO COMPLAINTS OF PAIN OR DISCOMFORT AT THE GROIN SITE. NO BLEEDING NOTED AT GROIN SITE. PATIENT IS UP AND AMBULATING IN THE ROOM TO THE BATHROOM WITH STANDBY ASSIST. NO OTHER ISSUES NOTED AT THIS TIME.
--- NOTE | 2018-07-03 00:29 | NUR ---
PCU NOC SHIFT - ASSUMED CARE PATIENT ALERT AND ORIENTED X4 T/O SHIFT. PATIENT HAS FLUIDS RUNNING IN IV PER EMAR. PATIENT DENIES ANY PAIN T/O SHIFT. RIGHT GROIN SITE WNL WITH CLEAR DRESS INTACT - NO S/SX OF BLEEDING, REDNESS OR SWELLING NOTED. PATIENT AMBULATES WITH MINIMAL ASSIST TO BATHROOM - LARGE URINARY VOIDS THIS SHIFT THUS FAR (SEE I & O DOCUMENTATION). HR REMAINS IN SINUS FER AT 54 PER TELE. PATIENT IS ON ROOM AIR WITH L/S CLEAR. WILL CONTINUE TO MONITOR. CALL LIGHT W/I REACH.
--- NOTE | 2018-07-03 03:31 | NUR ---
PCU NOC SHIFT SUMMARY PATIENT ALERT AND ORIENTED X4. RESP E/U ON ROOM AIR. PATIENT DENIES ANY PAIN T/O SHIFT. RIGHT GROIN SITE REMAINS WNL. PATIENT UP OUT OF BED AMULATING TO BATHROOM T/O SHIFT APPROX 3400 OUT THUS FAR THIS SHIFT CLEAR YELLOW URINE. PATIENT DENIES ANY NEEDS AT THIS TIME. LABS THIS AM WILL REVIEW. HR REMAINS SINUS FER WITH NO EVENTS IN THE 50'S. VSS ON ROOM AIR. WILL CONTINUE TO MONTIOR AND GIVE REPORT TO DAYSIDFT RN. CALL LIGHT W/I REACH.
[2018-07-03 04:07] LABS: Hematocrit 30.6 % (33.0-51.0); Hemoglobin 10.2 g/dL (11.5-16.0)
[2018-07-03 04:33] LABS: Anion Gap 8 mmol/L (6-16); Blood Urea Nitrogen 44 mg/dL (8-24); Bun/Creatinine Ratio 25.7 (12.0-20.0); CO2, Blood 24 mmol/L (21-32); Calcium, Blood 8.5 mg/dL (8.5-10.1); Chloride, Blood 106 mmol/L (98-108); Creatinine, Blood 1.71 mg/dL (0.40-1.00); Glomerular Filtration Rate 30 (60-); Glucose, Blood 107 mg/dL (70-99); Phosphorus, Blood 3.1 mg/dL (2.5-4.9); Potassium, Blood 3.7 mmol/L (3.5-5.5); Sodium, Blood 138 mmol/L (136-145)
--- NOTE | 2018-07-03 08:00 | NUR ---
PT LAYING IN BED AWAKE WATCHING TV, A/OX3, PLEASANT AND COOPERATIVE WITH CARE, FOLLOWS COMMANDS WELL, DENIES ANY COMPLAINTS OF PAIN, LUNGS ARE CLEAR A BIT DIM IN BASES, RESP EVEN AND UNLABORED, NO COUGH NOTED, HRR, TELE IN PLACE, RUNNING SB AT 59 PER MONITOR, SEE STRIP, NO EDEMA NOTED, PPP+ 2, CAP REFILL <3SEC, VS STABLE, AFEBILE, IV SITE IS CLEAR AND PATENT, S.L. BTX4, ABD FLAT SOFT NONTENDER, VOIDS WITHOUT DIFF, SKIN C/W/D, MAEW, MAR, CALL LIGHT IN REACH, SHE STATE SHE IS SUPPOSE TO GO HOME TODAY.
[2018-07-03] MEDS ORDERED: AZIT500 PO (12:17)
[2018-07-03] MEDS ORDERED: BUME2 PO (12:17)
--- NOTE | 2018-07-03 13:04 | NUR ---
PT HAS BEEN DISCHARGED TO HOME, WENT OVER DISCHARGE INSTRUCTIONS WITH PT SHE VERBALIZED UNDERSTANDING, NEW MEDICATIONS CALLED IN TO [facility]IV REMOVED INTACT, PT HAS ALL HER BELONGINGS, AND RIDE IS HERE TO TAKE HER HOME, LEFT VIA WHEELCHAIR WITH LEATHER STRETCHER IN ATTENDENC.
== END 2018-07-03 13:09 | disposition home or self-care (01) | DRG 673 ==
LOC: ER 06:10 → PCU 08:19 → ICUE 08:19 → PCU 10:41 → MEDS 06-27 14:26 → ICUE 06-29 01:03 → PCU 06-30 17:55
PROVIDERS: Emergency Medicine; Internal Medicine; Internal Medicine Gastroenterology; Internal Medicine Nephrology; Student in an Organized Health Care Education/Training Program; ADMIT Family Medicine
DX: I70.1 Atherosclerosis of renal artery (principal); I50.33 Acute on chronic diastolic (congestive) heart failure; J81.0 Acute pulmonary edema; J96.01 Acute respiratory failure with hypoxia; I13.0 Hypertensive heart and chronic kidney disease with heart failure and stage 1 through stage 4 chronic kidney disease, or unspecified chronic kidney disease; N18.4 Chronic kidney disease, stage 4 (severe); J44.1 Chronic obstructive pulmonary disease with (acute) exacerbation; E11.22 Type 2 diabetes mellitus with diabetic chronic kidney disease; I16.0 Hypertensive urgency; E78.5 Hyperlipidemia, unspecified; K21.9 Gastro-esophageal reflux disease without esophagitis; I35.0 Nonrheumatic aortic (valve) stenosis; M19.90 Unspecified osteoarthritis, unspecified site; E03.9 Hypothyroidism, unspecified; I25.10 Atherosclerotic heart disease of native coronary artery without angina pectoris; R79.89 Other specified abnormal findings of blood chemistry; Z79.82 Long term (current) use of aspirin
CPT/HCPCS: 36415; 51702; 71045; 76770; 80048; 80053; 80069; 82550; 82553; 83605; 83718; 83735; 83880; 84132; 84145; 84484; 85014; 85018; 85025; 87486; 87581; 87633; 87798; 93005; 93010; 93308; 93321; 93975; 94640; 94660; 94760; 94762; 96365; 96367; 96375; 97161; 97165; 97530; 99152; 99153; 99285-25; C1725; C1760; C1769; C1876; C1887; C1894; J0360; J0456; J0696; J1644; J1650; J1940; J2250; J2930; J3010; J7030; J7050; Q9967

== ENCOUNTER → 2018-12-23 | Outpatient (CLI) | payer MEDICARE ==
[~2018-12-23] MED LIST changes: +AZIT500 PO
== END | disposition home or self-care (01) ==
LOC: LAB SHORT 13:35 → LAB EV 13:35
DX: R30.9 Painful micturition, unspecified (principal)
CPT/HCPCS: 87077; 87086; 87186

== ENCOUNTER → 2019-02-26 | Outpatient (CLI) | payer MEDICARE | END | disposition home or self-care (01) | LOC: LAB SHORT 18:02 → LAB EV 18:02 | DX: N39.0 Urinary tract infection, site not specified (principal) | CPT/HCPCS: 87077; 87086; 87186 ==

== ENCOUNTER → 2019-08-04 | Outpatient (CLI) | payer MEDICARE | END | disposition home or self-care (01) | LOC: LAB SHORT 09:45 → LAB 09:45 | DX: N39.0 Urinary tract infection, site not specified (principal) | CPT/HCPCS: 87077; 87086; 87186 ==

== ENCOUNTER → 2019-12-27 | Outpatient (CLI) | payer MEDICARE ==
[2019-12-27 20:33] LABS: Protein, Urine Random 14.4 mg/dL (0.0-11.9)
[2019-12-27 20:45] LABS: Creatinine, Urine Random 31.1 mg/dL (27.00-270.00)
== END | disposition home or self-care (01) ==
LOC: LAB 18:07 → LAB SHORT 18:07
PROVIDERS: Internal Medicine
DX: N28.9 Disorder of kidney and ureter, unspecified (principal); R82.90 Unspecified abnormal findings in urine
CPT/HCPCS: 82570; 84156; 87077; 87086; 87186